=== PATIENT | male | born 2000 | race American Indian/Alaskan Native ===

== ENCOUNTER 2020-04-10 15:54 | Emergency (ER) | payer SELFPAY ==
[2020-04-10 16:58] VITALS: BP 132/73
[2020-04-10] MEDS ORDERED: ASPIRIN 325 MG TAB PO ONE (19:41)
--- NOTE | 2020-04-10 20:08 | XRay Report ---
CHEST 2 VIEWS INDICATION / CLINICAL INFORMATION: Chest pain. COMPARISON: None available. FINDINGS: SUPPORT DEVICES: None. HEART / MEDIASTINUM: No significant abnormality. LUNGS / PLEURA: No significant pulmonary or pleural abnormality. No pneumothorax. ADDITIONAL FINDINGS: No significant additional findings. IMPRESSION: 1. No acute abnormality of the chest. Signer Name: Ruben Ga MD Signed: 04/10/2020 8:04 PM Workstation Name: [id number]
[2020-04-10 20:23] LABS: Hematocrit 55.5 % (35.5-45.6); Hemoglobin 18.6 gm/dl (11.8-15.2); Mean Corpuscular HGB Conc 34 % (32-34); Mean Corpuscular Volume 88 fl (84-94); Platelet Count 280 K/mm3 (140-440); Red Blood Count 6.34 M/mm3 (3.65-5.03); Red Cell Distribution Width 14.2 % (13.2-15.2)
[2020-04-10 20:41] LABS: Alanine Aminotransferase 20 units/L (7-56); Albumin 5.6 g/dL (3.9-5); BUN/Creatinine Ratio 13; Blood Urea Nitrogen 12 mg/dL (9-20); Calcium 10.6 mg/dL (8.4-10.2); Hemolysis Index 6
--- NOTE | 2020-04-10 20:59 | Emergency Department Report ---
ED Chest Pain [facility] - General Chief Complaint: Chest Pain Stated Complaint: CHEST PAIN, Source: patient Mode of arrival: Ambulatory Limitations: No Limitations - History of Present Illness Initial Comments: Patient is a 20-year-old -[place] male with no past medical history who presents to the ED with complaint of acute onset persistent intermittent left- sided chest pain for the last 2 months. Patient states that he has been evaluated extensively at other hospitals for similar complaint and so far he has not been told what could be the cause of his chest pain. Patient states that this latest episode started about 1 week ago and has continued to be persistent and worsened in the last 24 hours. Patient states that the pain has no pattern but is intermittent, and when present it is a 5 out of 10 in severity. Patient also complains of bilateral jaundice of the eyes for the last 2 weeks without any known cause. Patient denies dizziness, syncope, shortness of breath, headache, nausea, vomiting, abdominal pain, fever, chills, heavy alcohol consumption, palpitations, sore throat, diarrhea, testicular pain or hematuria or flank pain. MD Complaint: chest pain -: Gradual, month(s) (2) Onset: awoke with symptoms Pain Location: substernal Pain Radiation: none Severity: moderate Severity scale (0 -10): 5 Quality: aching, sharp Consistency: intermittent Improves With: nothing Worsens With: nothing re: nausea. denies: vomting, diaphoresis, dyspnea Other Symptoms: denies: cough, fever, syncope, rash, acid taste in mouth, leg swelling, palpitations, burping Treatments Prior to Arrival: none Aspirin use within the Past 7 Days: (0) No - Related Data On Oral Contraceptives: No Previous Rx's Medication Instructions Recorded Last Taken Type Naproxen 500 mg PO Q12H PRN #20 tablet 04/10/20 Unknown Rx hydrOXYzine PAMOATE [Vistaril] 25 mg PO Q6HR PRN #30 capsule 04/10/20 Unknown Rx Allergies Allergy/AdvReac Type Severity Reaction Status Date / Time No Known Allergies Allergy Unverified 04/10/20 16:58 Heart Score - HEART Score History: Slightly suspicious EKG: Normal Age: < 45 Risk factors: 1-2 risk factors Troponin: < normal limit HEART Score: 1 - Critical Actions Critical Actions: 0-3 pts:0.9-1.7%risk of adverse cardiac event.Candidate for discharge ED Review of Systems ROS: Stated complaint: CHEST PAIN, Other details as noted in HPI Constitutional: denies: chills, fever Eyes: other (bilateral jaundice ). denies: eye pain, eye discharge, vision change ENT: denies: ear pain, throat pain Respiratory: denies: cough, shortness of breath, wheezing Cardiovascular: chest pain. denies: palpitations Endocrine: no symptoms reported Gastrointestinal: denies: abdominal pain, nausea, diarrhea Genitourinary: denies: urgency, dysuria Musculoskeletal: denies: back pain, joint swelling, arthralgia Skin: denies: rash, lesions Neurological: denies: headache, weakness, paresthesias Psychiatric: denies: anxiety, depression Hematological/Lymphatic: denies: easy bleeding, easy bruising ED Past Medical Hx - Past Medical History Previous Medical History?: No - Surgical History Past Surgical History?: No - Social History Smoking Status: Current Some Day Smoker Substance Use Type: None, Alcohol, Marijuana - Medications Home Medications: Home Medications Medication Instructions Recorded Confirmed Last Taken Type Naproxen 500 mg PO Q12H PRN #20 tablet 04/10/20 Unknown Rx hydrOXYzine PAMOATE [Vistaril] 25 mg PO Q6HR PRN #30 capsule 04/10/20 Unknown Rx ED Physical Exam - General Limitations: No Limitations General appearance: alert, in no apparent distress - Head Head exam: Present: atraumatic, normocephalic, normal inspection - Eye Eye exam: Present: normal appearance, PERRL, EOMI, scleral icterus (bilaterally) Pupils: Present: normal accommodation - ENT ENT exam: Present: normal exam, normal orophraynx, mucous membranes moist, TM's normal bilaterally, normal external ear exam. Absent: mucous membranes dry - Neck Neck exam: Present: normal inspection, full ROM. Absent: tenderness, meningismus, lymphadenopathy, thyromegaly - Respiratory Respiratory exam: Present: normal lung sounds bilaterally. Absent: respiratory distress, wheezes, rales, rhonchi, chest wall tenderness, accessory muscle use, decreased breath sounds, prolonged expiratory - Cardiovascular Cardiovascular Exam: Present: regular rate, normal rhythm, normal heart sounds. Absent: systolic murmur, diastolic murmur, rubs, gallop - GI/Abdominal GI/Abdominal exam: Present: soft, normal bowel sounds. Absent: tenderness, guarding, hyperactive bowel sounds, hypoactive bowel sounds - Extremities Exam Extremities exam: Present: normal inspection, full ROM, normal capillary refill - Back Exam Back exam: Present: normal inspection, full ROM. Absent: tenderness, CVA tenderness (R), CVA tenderness (L), muscle spasm, paraspinal tenderness, vertebral tenderness - Neurological Exam Neurological exam: Present: alert, oriented X3, CN II-XII intact, normal gait, reflexes normal - Psychiatric Psychiatric exam: Present: normal affect, normal mood, anxious - Skin Skin exam: Present: warm, dry, intact, normal color. Absent: rash ED Course Vital Signs 04/10/20 16:53 Temperature 98.2 F Pulse Rate 73 Respiratory 18 Rate Blood Pressure 132/73 O2 Sat by Pulse 100 Oximetry WEI score - Wei Score Age > 65: (0) No Aspirin use within the Past 7 Days: (0) No 3 or more CAD Risk Factors: (0) No 2 or more Angina events in past 24 hrs: (0) No Known CAD with more than 50% Stenosis: (0) No Elevated Cardiac Markers: (0) No ST Deviation Greater than 0.5mm: (0) No WEI Score: 0 ED Medical Decision Making - Lab Data Result diagrams: 04/10/20 20:00 04/10/20 20:00 - EKG Data EKG shows normal: sinus rhythm Rate: normal - EKG Data Interpretation: normal EKG 04/10/20 21:10 The EKG shows normal sinus rhythm with a ventricular rate of [address] or T wave abnormalities. - Radiology Data Radiology results: report reviewed, image reviewed Findings [facility] [address] [place] [address] XRay Report Signed Patient: KRYSTLE MADDOX MR#: [id number] : 2000 Acct:[id number] Age/Sex: 20 / M ADM Date: 04/10/20 Loc: ED Attending Dr: Ordering Physician: MICHEL DAMON Date of Service: 04/10/20 Procedure(s): XR chest routine 2V Accession Number(s): [id number] cc: MICHEL DAMON Fluoro Time In Minutes: CHEST 2 VIEWS INDICATION / CLINICAL INFORMATION: Chest pain. COMPARISON: None available. FINDINGS: SUPPORT DEVICES: None. HEART / MEDIASTINUM: No significant abnormality. LUNGS / PLEURA: No significant pulmonary or pleural abnormality. No pneumothorax . ADDITIONAL FINDINGS: No significant additional findings. IMPRESSION: 1. No acute abnormality of the chest. Signer Name: Ruben Ga MD Signed: 04/10/2020 8:04 PM Workstation Name: [id number] Transcribed By: LETY Dictated By: Ruben Ga MD Electronically Authenticated By: Ruben Ga MD Signed Date/Time: 04/10/202003 DD/ 03 TD/TT: - Medical Decision Making This is a 20-year-old -[place] male with no past medical history who presents to the ED with complaint of acute onset persistent intermittent left-sided chest pain for the last 2 months. Patient states that he has been evaluated extensively at other hospitals for similar complaint and so far he has not been told what could be the cause of his chest pain. Patient states that this latest episode started about 1 week ago and has continued to be persistent and worsened in the last 24 hours. Patient states that the pain has no pattern but is intermittent, and when present it is a 5 out of 10 in severity. Patient also complains of bilateral jaundice of the eyes for the last 2 weeks without any known cause. In the ED, patient is alert and oriented x3 and is not in distress with normal vital signs. The patient's Heart score is a 1 for cigare tte smoking. The EKG shows normal sinus rhythm with a ventricular rate of [address] or T wave abnormalities. Chest x-ray shows no acute cardiopulmonary abnormalities or pneumonitis. Lab test results were reviewed and showed elevated bilirubin and albumin levels, but the rest of the lab test results are nonactionable. These findings are discussed with the patient extensively and the implications, and the patient having denied the use of Tylenol or alcohol consumption was discharged from the ED under advised against taking Tylenol for pain or alcohol. Patient was given a referral to the GI physician Dr. Kal Casillas for follow-up as well as to her primary care physician Dr. Berg. Patient was discharged home on pain medications naproxen and advised to follow-up as instructed. Return precautions were discussed with the patient, and all questions were answered appropriately for the patient, and was advised to follow-up as encouraged. - Differential Diagnosis Costochondritis; CAD; Pneumonia; Muscle strain; Hepatitis Critical care attestation.: If time is entered above; I have spent that time in minutes in the direct care of this critically ill patient, excluding procedure time. ED Disposition Clinical Impression: Acute nonspecific chest pain with low risk of coronary artery disease, Hyperbilirubinemia, Jaundice, persistent Disposition: TO HOME OR SELFCARE Is pt being admited?: No Does the pt Need Aspirin: No Condition: Stable Instructions: Chest Pain (ED), Costochondritis (ED), Jaundice (ED) Additional Instructions: Take medication as needed for pain with food, drink plenty of fluids, and follow-up with the primary care physician or the GI physician as advised. Return to the ED immediately if symptoms get worse. Prescriptions: Naproxen 500 mg PO Q12H PRN #20 tablet PRN Reason: Pain , Severe (7-10) hydrOXYzine PAMOATE [Vistaril] 25 mg PO Q6HR PRN #30 capsule PRN Reason: Anxiety Referrals: JR BERG MD [Staff Physician] - 3-5 Days KAL CASILLAS MD [Staff Physician] - 3-5 Days Time of Disposition: 20:57 Print Language: HAITIAN
[2020-04-10 21:08] LABS: Total Cells Counted 100
[2020-04-10 21:09] LABS: RBC Morphology Normal
== END 2020-04-10 21:05 | disposition home or self-care (01) ==
LOC: ED 15:54
DX: E80.6 Other disorders of bilirubin metabolism (principal); R07.9 Chest pain, unspecified; R17 Unspecified jaundice; F17.200 Nicotine dependence, unspecified, uncomplicated; F12.90 Cannabis use, unspecified, uncomplicated; Z79.899 Other long term (current) drug therapy
CPT/HCPCS: 36415; 71046; 80053; 84484; 85007; 85025; 93005